=== PATIENT | female | born 2000 | race Caucasian/White ===

== ENCOUNTER 2023-01-27 21:12 | Emergency (ER) | payer BC, SELFPAY ==
[2023-01-27 21:13] VITALS: BP 125/90; PULSE 116; RESP 16; TEMP 38.3; O2SAT 97; BMI 22.4
--- NOTE | 2023-01-27 22:47 | EDS_ITS ---
HPI History of Present Illness Chief Complaint: Chest Other Detail of Chief Complaint: Chest pain Informant: patient Narrative Narrative: Patient presents to the emergency department complaining of right-sided chest pain that started around 8 PM tonight. Patient describes the pain as sharp and at times worse with movement but not with breathing. She took a Tums because she thought it might be heartburn initially. Patient also tells me that she was exposed to COVID 3 days ago and she was noted to have a fever on arrival to the emergency department. She denies any significant cough. She denies headache. She did have travel to [place] which is 3 hours about 10 days ago. No history of PE or DVT. [facility] Medical History (Updated 01/27/23 @ 23:[address] Amy Kaiser, ) Anxiety Depression Home Medications bupropion HCl 150 mg tablet,12 hr sustained-release (Wellbutrin SR) 150 mg PO DAILY 01/27/23 [History Last Taken Unknown] glycopyrrolate 2 mg tablet 2 mg PO QHS 01/27/23 [History Last Taken Unknown] mirtazapine 45 mg tablet 45 mg PO QHS 01/27/23 [History Last Taken Unknown] oxycodone-acetaminophen 5 mg-325 mg tablet (Percocet) 1 tab PO Q8H PRN pain 3 days #10 tabs 01/27/23 [Rx Last Taken Unknown] oxycodone-acetaminophen 5 mg-325 mg tablet (Percocet) 1 tab PO Q8H PRN pain 3 days #10 tabs 01/27/23 [Rx Last Taken Unknown] oxycodone-acetaminophen 5 mg-325 mg tablet (Percocet) 1 tab PO Q8H PRN pain 3 days #10 tabs 01/27/23 [Rx Last Taken Unknown] ubrogepant 100 mg tablet (Ubrelvy) 100 mg PO DAILY PRN migraine headache 01/27/23 [History Last Taken Unknown] Allergy/AdvReac Type Severity Reaction Status Date / Time hydrocodone AdvReac Nausea Verified 01/27/23 21:14 Family History (Updated 01/27/23 @ 21:34 by Mirtha Yadav) Father Cancer Surgical History (Updated 01/27/23 @ 21:34 by Mirtha Yadav) H/O removal of cyst H/O spinal fusion H/O wisdom tooth extraction History of throat surgery Social History (Updated 01/27/23 @ 21:34 by Mirtha Yadav) household members: none housing: apartment current occupational status: student Smoking Status: Never smoker ROS ROS ED Review of Systems ROS Unobtainable: other Constitutional Constitutional ED: Reports fever(s) and lethargy; Denies chills, sweats or weig ht loss Eyes Eyes: Denies blurry vision, change in vision or diplopia ENT ENT ED: Denies rhinorrhea or sore throat Cardiovascular Cardiovascular: Reports chest pain; Denies orthopnea or racing heartbeat Respiratory/Chest Respiratory/Chest: Denies cough, dyspnea, dyspnea on exertion, orthopnea or sputum Gastrointestinal Gastrointestinal: Denies abdominal pain, diarrhea, nausea or vomiting Genitourinary Genitourinary ED: Denies dysuria, hematuria or urinary frequency Musculoskeletal Musculoskeletal: Denies arthralgias, back pain, myalgias or neck pain Integumentary Denies abscess, Abrasions or rash Neurologic Neurologic: Denies headache(s) or weakness Psychiatric Psychiatric: Denies anxiety, depression or suicidal thoughts Endocrine Endocrinology: Denies polydipsia, polyphagia or polyuria Hematologic/Lymphatic Hematologic/Lymphatic: Denies easy bleeding, easy bruising or lymphadenopathy Allergic/Immunologic Allergic/Immunologic ED: Denies mouth swelling, tongue swelling or urticaria EXAM Physical Exam Const Vital Signs: 01/27/23 21:13 01/27/23 21:31 Temperature 100.9 F H Temperature Source Oral Pulse Rate 116 H Respiratory Rate 16 Respiratory Effort Normal Blood Pressure 125/90 H Blood Pressure Mean 101 Pulse Ox 97 Oxygen Delivery Method Room Air Positive well nourished and well developed General Appearance ED: well developed and NAD HEENT Reports TM's clear and moist mucous membranes normocephalic and atraumatic; Negative for trauma or tenderness Tympanic Membrane ED: Yes TM's clear Eyes PERRL and EOMs intact bilaterally General Eye ED: Negative for pale conjunctiva or scleral icterus Neck no lymphadenopathy, supple and no JVD General: Negative for tenderness Chest Wall inspection of chest normal and palpation of chest normal Chest Narrative: I cannot reproduce her pain with palpation over chest wall. Chest: Negative for tenderness Resp normal respiratory effort and clear to auscultation bilaterally Effort and Inspection: Negative for respiratory distress or pain with movement Auscultation: Negative for rhonchi, wheezes or diminished lung sounds Cardio regular rate, regular rhythm, S1 normal heart sound, S2 normal heart sound and no murmurs Peripheral Pulses: pulses 2+ throughout GI normal to inspection, nondistended, normoactive bowel sounds, soft to palpation, non-tender, non-distended and no masses Back/Spine no CVA tenderness and no thoracic nor lumbar tenderness Extremity normal to inspection General Extremety ED: Negative for edema General Extremity: Negative for edema Neuro oriented x3, CN's II-XII intact bilaterally, no sensory deficits noted and gait normal Sensorium / Orientation: awake, alert, oriented to person, oriented to place and oriented to time Motor Exam: strength 5/5 throughout and strength abnormal Psych mental status grossly normal Skin no rashes or lesions noted and no wounds MDM MDM MDM Narrative Medical decision making narrative: Patient presents with sudden onset of right-sided chest pain. We will obtain a chest x-ray to rule out pneumothorax versus infiltrate given that she has a fever. We will obtain a COVID and flu testing. Patient's COVID testing came back positive. Chest x-ray interpreted by myself as no evidence of infiltrate or pneumothorax. She does have Smith rods in place. This point etiology of her pain unclear although I suspect musculoskeletal as pain is worse with movement and not with breathing. I do not feel PE to be etiology of pain. Patient also positive for COVID could be related to COVID. Patient will be given a prescription for few [place] for pain. She is advised to use ibuprofen or Tylenol as well for fever control. Patient advised return if increasing shortness of breath or condition should worsen anyway. Lab Data Attestation: I reviewed the patient's lab results. Radiography Diagnostic Testing: Clinical Impression(s) from Imaging Studies Chest X-Ray 01/27/23 23:00 IMPRESSION: No radiographic evidence of acute cardiopulmonary disease. Electronically Signed: David Winkler MD at 23:37 EDT Reading Location ID and State: [facility] / [place] Tel , Service support , Discharge Plan Triage Chief Complaint: Chest Other ED Provider: Amy Kaiser Dx/Rx/DC Orders Clinical Impression: COVID-19, Chest pain Instructions: Coronavirus Disease 2019 (COVID-19): Caring for Yourself or Others, ED Chest Pain, Uncertain Cause Prescriptions: New oxycodone-acetaminophen [Percocet] 5-325 mg tablet 1 tab PO Q8H PRN (Reason: pain) 3 Days Qty: 10 0RF oxycodone-acetaminophen [Percocet] 5-325 mg tablet 1 tab PO Q8H PRN (Reason: pain) 3 Days Qty: 10 0RF oxycodone-acetaminophen [Percocet] 5-325 mg tablet 1 tab PO Q8H PRN (Reason: pain) 3 Days Qty: 10 0RF No Action mirtazapine 45 mg tablet 45 mg PO QHS bupropion HCl [Wellbutrin SR] 150 mg tablet sustained-release 12 hr 150 mg PO DAILY glycopyrrolate 2 mg tablet 2 mg PO QHS Ubrelvy 100 mg tablet 100 mg PO DAILY PRN (Reason: migraine headache) Primary Care Provider: Care Physician,No Primary Referrals: [facility] Doctor,Out of [Non-Staff] - Disposition Disposition: Home, Self Care Discharge Date/Time: 01/27/23 23:50
--- NOTE | 2023-01-27 23:00 | RAD_ITS ---
INDICATION: chest pain EXAMINATION/TECHNIQUE: X-RAY - XR Chest 1 View COMPARISON: No relevant prior comparison study available FINDINGS: LINES/DEVICES: None. LUNGS: No consolidation, edema or effusion. No pneumothorax. MEDIASTINUM AND CARDIOVASCULAR STRUCTURES: Cardiac silhouette not enlarged. Central airways and mediastinal contour are unremarkable. BONES AND SOFT TISSUES: Unremarkable. RAD/Chest 1 View (Portable) IMPRESSION: No radiographic evidence of acute cardiopulmonary disease. Electronically Signed: David Winkler MD at 23:37 EDT ,
[2023-01-27 23:49] VITALS: RESP 18
== END 2023-01-27 23:50 | disposition home or self-care (01) ==
LOC: ED 23:43
PROVIDERS: Emergency Provider Emergency Medicine; Visit Provider Emergency Medicine
DX: U07.1 COVID-19 (principal); R07.9 Chest pain, unspecified; F41.9 Anxiety disorder, unspecified; F32.A Depression, unspecified; Z79.899 Other long term (current) drug therapy
CPT/HCPCS: 71045; 87428; 99282

== ENCOUNTER → 2023-04-21 | Outpatient (CLI) | payer BC, SELFPAY ==
[2023-04-21 07:47] LABS: Hematocrit 43.7 % (37-47); Hemoglobin 14.1 g/dL (12.0-15.0); Mean Corp Hgb Conc 32.3 g/dL (32-36); Mean Corpuscular Hgb 29.5 pg (27.0-32.0); Mean Corpuscular Volume 91.4 fL (81-99); Mean Platelet Vol. 10.5 fl (6.2-12.0); Platelet Count 217 K/mm3 (150-450); RBC Distribution Width CV 12.7 % (11.6-14.6); RBC Distribution Width SD 42.5 fl (35.1-43.9); Red Blood Count 4.78 M/mm3 (4.2-5.4); White Blood Count 6.8 K/mm3 (4.4-11.0)
[2023-04-21 08:20] LABS: Vitamin B12 211 pg/mL (211-911); Vitamin D,25 Hydroxy 22.6 ng/mL
[2023-04-21 08:43] LABS: AST(SGOT) 13 U/L (15-37); Alanine Aminotransfer ALT/SGPT 18 U/L (13-56); Albumin, Serum 3.5 g/dL (3.2-5.0); Alkaline Phosphatase 46 U/L (45-117); Anion Gap 3 (5-15); BUN 8 mg/dL (7-18); BUN/Creat Ratio 8.1 RATIO (10-20); Calcium,Total 9.1 mg/dL (8.5-10.1); Chloride 111 mmol/L (98-107); Cholesterol 130 mg/dL (200); Creatinine, Serum 0.98 mg/dL (0.55-1.02); EST Glomerular Filtration Rate 73 mL/min (>60); Est Glom Filt Rate - Afr Amer 89 mL/min (>60); Ferritin 37 ng/mL (8-252); Globulin 3.6 g/dL (2.2-4.2); Glucose 104 mg/dL (74-106); High Density Lipoprotein 47 mg/dL; Iron 138 ug/dL (50-170); Iron Binding Capacity,Total 378 ug/dL (250-450); PERCENT IRON SATURATION 36.5 % (15.0-55.0); Protein, Total 7.1 g/dL (6.4-8.2); Sodium Level 141 mmol/L (136-145); Triglycerides 93 mg/dL; Very Low Density Lipoprotein 19 mg/dL (5-40)
== END | disposition home or self-care (01) ==
LOC: PSN 07:24
PROVIDERS: Referring Provider Physician Assistant; Visit Provider Physician Assistant
DX: Z79.899 Other long term (current) drug therapy (principal)
CPT/HCPCS: 36415; 80053; 80061; 82306; 82607; 82728; 82746; 83540; 83550; 84443; 85027; 93005

== ENCOUNTER → 2024-06-13 | Outpatient (CLI) | payer BC, SELFPAY ==
[2024-06-13 16:01] LABS: Hematocrit 44.1 % (37-47); Hemoglobin 14.5 g/dL (12.0-15.0); Mean Corp Hgb Conc 32.9 g/dL (32-36); Mean Corpuscular Hgb 29.5 pg (27.0-32.0); Mean Corpuscular Volume 89.6 fL (81-99); Mean Platelet Vol. 10.2 fl (6.2-12.0); Platelet Count 256 K/mm3 (150-450); RBC Distribution Width CV 12.8 % (11.6-14.6); RBC Distribution Width SD 41.8 fl (35.1-43.9); Red Blood Count 4.92 M/mm3 (4.2-5.4); White Blood Count 8.4 K/mm3 (4.4-11.0)
[2024-06-13 16:49] LABS: AST(SGOT) 30 U/L (15-37); Alanine Aminotransfer ALT/SGPT 22 U/L (13-56); Albumin, Serum 3.7 g/dL (3.2-5.0); Alkaline Phosphatase 59 U/L (45-117); Anion Gap 5 (5-15); BUN 10 mg/dL (7-18); BUN/Creat Ratio 11.2 RATIO (10-20); Calcium,Total 9.2 mg/dL (8.5-10.1); Chloride 111 mmol/L (98-107); Creatinine, Serum 0.89 mg/dL (0.55-1.02); EST Glomerular Filtration Rate 82 mL/min (>60); Est Glom Filt Rate - Afr Amer 99 mL/min (>60); Ferritin 36 ng/mL (8-252); Globulin 3.6 g/dL (2.2-4.2); Glucose 90 mg/dL (74-106); Iron 159 ug/dL (50-170); Iron Binding Capacity,Total 384 ug/dL (250-450); Potassium 4.2 mmol/L (3.5-5.1); Protein, Total 7.3 g/dL (6.4-8.2); Sodium Level 142 mmol/L (136-145); Thyroid Stim Hormone (TSH) 0.963 uIU/mL (0.358-3.740)
[2024-06-13 16:59] LABS: Vitamin B12 > 2000 pg/mL (211-911); Vitamin D,25 Hydroxy 35.6 ng/mL
== END | disposition home or self-care (01) ==
LOC: LAB 15:34
PROVIDERS: Referring Provider Physician Assistant; Visit Provider Physician Assistant
DX: Z79.899 Other long term (current) drug therapy (principal)
CPT/HCPCS: 36415; 80053; 82306; 82607; 82728; 82746; 83540; 83550; 84443; 85027

== ENCOUNTER → 2024-09-01 | Outpatient (CLI) | payer OTHER, SELFPAY ==
--- NOTE | 2024-09-01 08:10 | EKG12_ITS ---
Test Reason : HALF-WAY DRUG THERA Blood Pressure : */* mmHG Vent. Rate : 95 BPM Atrial Rate : 95 BPM P-R Int : 102 ms QRS Dur : 72 ms QT Int : 358 ms P-R-T Axes : 52 83 38 degrees QTcB Int : 449 ms Sinus rhythm with short OR Possible Left atrial enlargement Borderline ECG Confirmed by Aaron Fine ([id number]), content editor TRUONG BEAUCHAMP ([id number]) on 09/04/2024 8:51:14 AM Referred By: Veronica Choi Confirmed By: Aaron Fine
== END | disposition home or self-care (01) ==
PROVIDERS: Referring Provider Physician Assistant; Visit Provider Physician Assistant
DX: R00.0 Tachycardia, unspecified (principal); Z79.899 Other long term (current) drug therapy
CPT/HCPCS: 93005